=== PATIENT | male | born 1995 | race Caucasian/White ===

== ENCOUNTER 2019-07-04 15:38 | Emergency (ER) | payer OTHER ==
--- NOTE | 2019-07-04 15:43 | PDOC ---
Rapid Medical Evaluation Medical Evaluation: Allergies Allergy/AdvReac Type Severity Reaction Status Date / Time No Known Allergies Allergy Verified 03/30/16 10:24 I have performed a brief in-person evaluation of this patient. The patient presents with a chief complaint of: L testicular pain intermittent x 1 week; denies abd pain, vomiting, urinary complaints Pertinent physical exam findings: Appears comfortable, in NAD; pelvic exam deferred I have ordered the following: Testicular US The patient will proceed to the ED for further evaluation. 07/04/19 15:41
[2019-07-04 15:45] VITALS: BP 131/71; PULSE 86; TEMP 97.9; BMI 28.7
--- NOTE | 2019-07-04 16:06 | PDOC ---
History of Present Illness - General Chief Complaint: Injury Stated Complaint: PAIN TO LT TESTICLE Time Seen by Provider: 07/04/19 15:41 History Source: Patient - History of Present Illness Timing/Duration: reports: constant Past History - Past Medical History Allergies/Adverse Reactions: Allergies Allergy/AdvReac Type Severity Reaction Status Date / Time No Known Allergies Allergy Verified 07/04/19 15:45 Home Medications: Ambulatory Orders NK [No Known Home Medication] 03/15/16 COPD: No Other medical history: DENIES - Immunization History Immunization Up to Date: Yes - Suicide/Smoking/Psychosocial Hx Smoking History: Never smoked Have you smoked in the past 12 months: No Information on smoking cessation initiated: No Hx Alcohol Use: No Drug/Substance Use Hx: No Substance Use Type: None Review of Systems - Review of Systems Constitutional: No: Chills, Fever ABD/GI: No: Nausea, Vomiting, Abdominal cramping : Yes: Testicular Pain. No: Burning, Dysuria, Discharge, Hematuria, Testicular Swelling, Lesions *Physical Exam - Vital Signs Last Vital Signs Temp Pulse Resp BP Pulse Ox 97.9 F 86 17 131/71 100 07/04/19 15:42 07/04/19 15:42 07/04/19 15:42 07/04/19 15:42 07/04/19 15:42 - Physical Exam General Appearance: Yes: Appropriately Dressed. No: Apparent Distress HEENT: positive: Normal Voice Neck: positive: Supple Respiratory/Chest: negative: Respiratory Distress Gastrointestinal/Abdominal: positive: Soft. negative: Tender, Hernia Male Genitalia: positive: normal genitalia. negative: discharge, testicular tenderness, testicular mass, epididymus tender, hernia, CVAT Integumentary: positive: Dry, Warm Neurologic: positive: Fully Oriented, Alert, Normal Mood/Affect Medical Decision Making - Medical Decision Making 07/04/19 16:03 24 yo m, no sig hx, here w/ groin/testes pain s/p injury several days ago after he accidentally hit himself in groin w/ heavy tile several days ago. Pain is on and off and difficult to localize per pt. No testicular swelling, penile discharge, dysuria, n/v/f/c See exam Possible groin contusion/strain given hx Exam wnl US neg for torsion or other acute pathology UA/cxs sent *DC/Admit/Observation/Transfer Diagnosis at time of Disposition: Contusion, groin Qualifiers: Encounter type: initial encounter Qualified Code(s): S30.1XXA - Contusion of abdominal wall, initial encounter - Discharge Dispostion Disposition: HOME Condition at time of disposition: Good - Referrals - Patient Instructions Additional Instructions: Your ultrasound was normal here You may have a groin contusion which will heal in time Take motrin or tylenol as needed - Post Discharge Activity
[2019-07-04 19:24] LABS: URINE APPEARANCE CLEAR; URINE BILIRUBIN NEGATIVE (NEGATIVE); URINE COLOR YELLOW; URINE GLUCOSE (UA) NEGATIVE (NEGATIVE); URINE KETONE NEGATIVE (NEGATIVE); URINE LEUK ESTERASE NEGATIVE (NEGATIVE); URINE NITRITE NEGATIVE (NEGATIVE); URINE PROTEIN NEGATIVE (NEGATIVE); URINE UROBILINOGEN 0.2 mg/dL (0.2-1.0)
== END 2019-07-04 18:18 | disposition home or self-care (01) ==
LOC: JERFT 15:38
DX: S30.1XXA Contusion of abdominal wall, initial encounter (principal); W22.8XXA Striking against or struck by other objects, initial encounter; Y93.89 Activity, other specified; Y92.89 Other specified places as the place of occurrence of the external cause; Y99.8 Other external cause status
CPT/HCPCS: 36415; 76870-TC; 81003; 87086; 87491; 87591; 99282-25

== ENCOUNTER 2021-01-06 12:58 | Emergency (ER) | payer OTHER ==
[2021-01-06 13:38] VITALS: BP 110/65; PULSE 69; TEMP 98; BMI 27.8
== END 2021-01-06 15:02 | disposition home or self-care (01) ==
LOC: JERFT 12:58
DX: M67.431 Ganglion, right wrist (principal)
CPT/HCPCS: 73110-TC-RT-FY; 99283-25

== ENCOUNTER 2021-06-02 13:13 | Emergency (ER) | payer OTHER ==
[2021-06-02 13:29] VITALS: BP 105/72; PULSE 84; TEMP 98.6; BMI 28.3
== END 2021-06-02 14:15 | disposition home or self-care (01) ==
LOC: JERFT 13:13
DX: M25.562 Pain in left knee (principal)
CPT/HCPCS: 99281-25

== ENCOUNTER 2023-03-17 20:29 | Emergency (ER) | payer OTHER ==
[2023-03-17 20:37] VITALS: BP 124/69; PULSE 78; RESP 20; TEMP 98.1; BMI 31.6
[2023-03-17] MEDS ORDERED: IBUPROFEN 600 MG TABLET (FP) PO ONE ×2 (22:05→22:10)
[2023-03-17 22:21] LABS: PH,URINE 6.5 (5.0-8.0); URINE APPEARANCE CLEAR; URINE BILIRUBIN NEGATIVE (NEGATIVE); URINE COLOR YELLOW; URINE GLUCOSE (UA) NEGATIVE (NEGATIVE); URINE KETONE NEGATIVE (NEGATIVE); URINE LEUK ESTERASE NEGATIVE (NEGATIVE); URINE NITRITE NEGATIVE (NEGATIVE); URINE PROTEIN NEGATIVE (NEGATIVE); URINE UROBILINOGEN 0.2 mg/dL (0.2-1.0)
== END 2023-03-18 00:14 | disposition home or self-care (01) ==
LOC: JERFT 20:29
DX: N50.812 Left testicular pain (principal); R10.9 Unspecified abdominal pain
CPT/HCPCS: 36415; 76870-TC; 81003; 87086; 87491; 87591; 99284-25